=== PATIENT | male | born 1940 | race Caucasian/White ===

== ENCOUNTER 2017-05-05 17:40 | Inpatient (IN) | payer OTHER ==
[2017-05-05 17:47] VITALS: BMI 28.1
--- NOTE | 2017-05-05 17:48 | PDOC ---
Rapid Medical Evaluation Time Seen by Provider: 05/05/17 17:43 Medical Evaluation: Allergies Allergy/AdvReac Type Severity Reaction Status Date / Time No Known Drug Allergies Allergy Verified 05/05/17 17:43 05/05/17 17:44 I have performed a brief in-person evaluation of this patient. The patient presents with a chief complaint of: P/w worsening of LLE edema "for a long time" per pt. Sent in by PMD for evaluation. H/o HTN, HLD, CHF, edema on lasix, f/u [place] of cardiology. PMD is Dr Mark Pertinent physical exam findings: Stable and well betsy w/ edema b/l LE, L>R I have ordered the following:chem/cbc/bnp/ua The patient will proceed to the ED for further evaluation. 05/05/17 17:47 05/05/17 17:47
[2017-05-05 18:33] LABS: BASOPHIL 0.5 % (0-2.0); EOSINOPHIL 2.9 % (0-4.5); MCH 27.7 pg (25.7-33.7); MCHC 31.8 g/dl (32.0-35.9); MEAN CELL VOLUME 87.3 fl (80-96); MEAN PLT VOLUME 7.7 fl (7.5-11.1); NEUTROPHILS 54.2 % (42.8-82.8); PLATELET COUNT 229 K/MM3 (134-434); RDW 16.6 % (11.9-15.9); WHITE BLOOD COUNT 5.7 K/mm3 (4.0-10.0)
[2017-05-05 18:36] LABS: URINE APPEARANCE CLEAR; URINE BILIRUBIN NEGATIVE (NEGATIVE); URINE BLOOD NEGATIVE (NEGATIVE); URINE COLOR LTYELLOW; URINE GLUCOSE (UA) NEGATIVE (NEGATIVE); URINE KETONE NEGATIVE (NEGATIVE); URINE LEUK ESTERASE NEGATIVE (NEGATIVE); URINE NITRITE NEGATIVE (NEGATIVE); URINE PROTEIN NEGATIVE (NEGATIVE); URINE UROBILINOGEN NEGATIVE E.U./dl (0.2-1.0)
[2017-05-05 19:13] LABS: ALBUMIN 3.6 g/dl (3.4-5.0); ALK PHOS 117 U/L (45-117); ANION GAP 6 (8-16); BILIRUBIN,TOTAL 0.6 mg/dL (0.2-1.0); CALCIUM 8.8 mg/dL (8.5-10.1); CO2 32 mmol/L (21-32); GLUCOSE,RANDOM 90 mg/dL (74-106); SGOT/AST 17 U/L (15-37); SGPT/ALT 19 U/L (12-78); TOT PROT 7.3 g/dl (6.4-8.2)
--- NOTE | 2017-05-05 20:29 | PDOC ---
History of Present Illness - History of Present Illness Initial Comments: 05/05/17 20:43 Patient is a 76 year old male, accompanied by daughter, with significant medical hx of HTN and HLD who is presenting to the ED with worsening lower extremity edema for the past month. Patient reports he was seen by his title 1 tutor a month ago and was noted to have some lower extremity swelling. He was then seen again within the past week and was noted to have increased swelling to both legs. Daughter reports that the patient has had increased fatigue over the past several weeks. She notes that the patient falls asleep while doing every day activities such as while eating breakfast and gardening. The daughter also endorses that the patient has been slurring his words for the past week. Daughter spoke with the patient's cable installer repairer helper and PCP today who both referred him to the ED. Denies any chest pain, palpitations, shortness of breath, dyspnea with exertion , diaphoresis, lightheadedness, or history of blood clots. The patient takes 20mg of Lasix BID. PCP: Brian Mark MD Ore Dryer: Óscar Mackey [place] [place] Hx: hernia repair x 2 Allergies: NKDA <Kandace Buckner - Last Filed: 05/05/17 23:48> <Geraldine Torres - Last Filed: 05/06/17 17:21> - General Chief Complaint: Edema Stated Complaint: PALPITATIONS/SWOLLEN FEET Time Seen by Provider: 05/05/17 17:43 Past History <Kandace Buckner - Last Filed: 05/05/17 23:48> - Past Medical History Anemia: No Asthma: No Cancer: No Cardiac Disorders: No CVA: No COPD: No CHF: No Dementia: No Diabetes: No GI Disorders: No Disorders: No HTN: Yes Hypercholesterolemia: Yes Liver Disease: No Seizures: No Thyroid Disease: No - Surgical History Abdominal Surgery: Yes ("OPERATION FOR ULCER" 1970, HERNIA) Appendectomy: No Cardiac Surgery: No Cholecystectomy: No Lung Surgery: No Neurologic Surgery: No Orthopedic Surgery: Yes (LEFT ELBOW FX AND REPAIR) - Psycho/Social/Smoking Cessation Hx Anxiety: No Suicidal Ideation: No Smoking Status: No Smoking History: Former smoker Have you smoked in the past 12 months: No Number of Cigarettes Smoked Daily: 0 If you are a former smoker, when did you quit?: 35YRS AGO Information on smoking cessation initiated: No Hx Alcohol Use: No Drug/Substance Use Hx: No Substance Use Type: None Hx Substance Use Treatment: No <Geraldine Torres Carina - Last Filed: 05/06/17 17:21> - Past Medical History Allergies/Adverse Reactions: Allergies Allergy/AdvReac Type Severity Reaction Status Date / Time No Known Drug Allergies Allergy Verified 05/05/17 17:43 Home Medications: Ambulatory Orders Atorvastatin Calcium [Lipitor] 10 mg PO DAILY 05/05/13 Propranolol HCl [Propranolol HCl ER] 160 mg PO DAILY 05/05/13 Amitriptyline HCl [Elavil -] 75 mg PO DAILY 05/05/17 Divalproex Sodium [Depakote] 250 mg PO BID 05/05/17 Furosemide [Lasix -] 20 mg PO BID 05/05/17 Losartan Potassium [Cozaar -] 50 mg PO DAILY 05/05/17 Pramipexole Dihydrochloride [Mirapex -] 1.5 mg PO DAILY 05/05/17 Aspirin [ASA -] 81 mg PO DAILY 05/06/17 Review of Systems - Review of Systems Comments:: 05/05/17 20:43 CONSTITUTIONAL: Present: increased fatigue Absent: fever, chills, diaphoresis, loss of appetite HEENT: Absent: rhinorrhea, nasal congestion, throat pain, throat swelling, difficulty swallowing, mouth swelling, ear pain, eye pain, visual changes CARDIOVASCULAR: Present: peripheral edema Absent: chest pain, syncope, palpitations, irregular heart rate, lightheadedness RESPIRATORY: Absent: cough, shortness of breath, dyspnea with exertion, orthopnea, wheezing, stridor, hemoptysis GASTROINTESTINAL: Absent: abdominal pain, abdominal distension, nausea, vomiting, diarrhea, constipation, melena, hematochezia GENITOURINARY: Absent: dysuria, frequency, urgency, hesitancy, hematuria, flank pain, genital pain MUSCULOSKELETAL: Absent: myalgia, arthralgia, joint swelling SKIN: Absent: rash, itching, pallor HEMATOLOGIC/IMMUNOLOGIC: Absent: easy bleeding, easy bruising, lymphadenopathy, frequent infections ENDOCRINE: Absent: unexplained weight gain, unexplained weight loss, heat intolerance, cold intolerance NEUROLOGIC: Present: slurred speech Absent: headache, focal weakness or paresthesia, dizziness, unsteady gait, seizure, mental status changes, bladder or bowel incontinence. PSYCHIATRIC: Absent: anxiety, depression, suicidal or homicidal ideation, hallucinations <SitaKandace - Last Filed: 05/05/17 23:48> *Physical Exam - Vital Signs Last Vital Signs Temp Pulse Resp BP Pulse Ox 98.3 F 60 18 108/63 100 05/05/17 17:44 05/05/17 17:44 05/05/17 17:44 05/05/17 17:44 05/05/17 17:44 - Physical Exam Comments: 05/05/17 20:44 GENERAL: Well developed, well nourished. Awake and alert. No acute distress. HEENT: Normocephalic, atraumatic. PERRLA, EOMI. No conjunctival pallor. Sclera are non- icteric. Moist mucous membranes. Oropharynx is clear. NECK: Supple. Full ROM. No JVD. Carotid pulses 2+ and symmetric, without bruits. No thyromegaly. No lymphadenopathy. CARDIOVASCULAR: Regular rate and rhythm. No murmurs, rubs, or gallops. Distal pulses are 2+ and symmetric. PULMONARY: No evidence of respiratory distress. Lungs clear to auscultation bilaterally. No wheezing, rales or rhonchi. ABDOMINAL: Soft. Non-tender. Non-distended. No rebound or guarding. No organomegaly. Normoactive bowel sounds. MUSCULOSKELETAL: Normal range of motion at all joints. No bony deformities or tenderness. No CVA tenderness. EXTREMITIES: 2+ pitting edema lower extremities bilaterally. No cyanosis. No clubbing. No calf tenderness. SKIN: Warm and dry. Normal capillary refill. No rashes. No jaundice. NEUROLOGICAL: Alert, awake, appropriate. Cranial nerves 2-12 intact. Normal speech. Toes are down-going bilaterally. Gait is normal without ataxia. PSYCHIATRIC: Cooperative. Good eye contact. Appropriate mood and affect. <Kandace Buckner - Last Filed: 05/05/17 23:48> - Vital Signs Last Vital Signs Temp Pulse Resp BP Pulse Ox 98.3 F 60 18 108/63 100 05/05/17 17:44 05/05/17 17:44 05/05/17 17:44 05/05/17 17:44 05/05/17 17:44 <Geraldine Torres - Last Filed: 05/06/17 17:21> Heart Score/ECG Review #1 05/05/17 23:48 Poor data quality, interpretation may be adversely affected Sinus bradycardia at 56 bpm Otherwise normal ECG <Kandace Buckner - Last Filed: 05/05/17 23:48> ED Treatment Course - LABORATORY CBC & Chemistry Diagram: 05/05/17 18:00 05/05/17 18:00 - ADDITIONAL ORDERS Additional order review: Laboratory Results 05/05/17 05/05/17 05/05/17 18:00 18:00 18:00 Sodium 142 Potassium 4.5 Chloride 104 Carbon Dioxide 32 Anion Gap 6 L BUN 33 H D Creatinine 2.0 H D Creat Clearance w eGFR 32.65 Random Glucose 90 D Calcium 8.8 Total Bilirubin 0.6 AST 17 D ALT 19 Alkaline Phosphatase 117 B-Natriuretic Peptide 244.57 Total Protein 7.3 Albumin 3.6 Urine Color Ltyellow Urine Appearance Clear Urine pH 5.0 Urine Protein Negative Urine Glucose (UA) Negative Urine Ketones Negative Urine Blood Negative Urine Nitrite Negative Urine Bilirubin Negative Urine Urobilinogen Negative Ur Leukocyte Esterase Negative 05/05/17 18:00 RBC 4.15 MCV 87.3 MCHC 31.8 L RDW 16.6 H D MPV 7.7 Neutrophils % 54.2 Lymphocytes % 30.7 Monocytes % 11.7 H Eosinophils % 2.9 Basophils % 0.5 - RADIOLOGY Radiograph Interpretation: 05/05/17 21:41 Chest X-Ray Impression: Interval bilateral increased interstitial lung markings with mild atelectatic changes versus focal airspace disease in the right midlung. Rule out pneumonia. Correlation with PA and lateral view of the chest or a follow-up chest x-ray within a week is recommended to rule out underlying mass lesion. Reported By: Eloina Jane MD <Kandace Buckner - Last Filed: 05/05/17 23:48> - LABORATORY CBC & Chemistry Diagram: 05/06/17 05:35 05/06/17 05:35 - ADDITIONAL ORDERS Additional order review: Laboratory Results 05/05/17 05/05/17 05/05/17 18:00 18:00 18:00 Sodium 142 Potassium 4.5 Chloride 104 Carbon Dioxide 32 Anion Gap 6 L BUN 33 H D Creatinine 2.0 H D Creat Clearance w eGFR 32.65 Random Glucose 90 D Calcium 8.8 Total Bilirubin 0.6 AST 17 D ALT 19 Alkaline Phosphatase 117 B-Natriuretic Peptide 244.57 Total Protein 7.3 Albumin 3.6 Urine Color Ltyellow Urine Appearance Clear Urine pH 5.0 Urine Protein Negative Urine Glucose (UA) Negative Urine Ketones Negative Urine Blood Negative Urine Nitrite Negative Urine Bilirubin Negative Urine Urobilinogen Negative Ur Leukocyte Esterase Negative 05/05/17 18:00 RBC 4.15 MCV 87.3 MCHC 31.8 L RDW 16.6 H D MPV 7.7 Neutrophils % 54.2 Lymphocytes % 30.7 Monocytes % 11.7 H Eosinophils % 2.9 Basophils % 0.5 <Geraldine Torres - Last Filed: 05/06/17 17:21> Medical Decision Making - Medical Decision Making 05/05/17 20:26 76-year-old female brought in by his daughter for 6 weeks with increasing bilaterally extremity edema. His PCP is Dr. Mark and his cable installer repairer helper is Dr. Mackey He denies any shortness of breath, chest pain, nausea, vomiting, fever, chills , or cough The daughter states that he's unusually fatigued lately and for the past month always appears to be napping. He saw his title 1 tutor a month ago. She commented on the lower extremity edema and when he saw the the title 1 tutor on Friday. She said it had worsened. He does take Lasix 40 daily. He states this seems Dr. Mark once a year. Past medical history significant for hypercholesterolemia and hypertension. Past surgical history is repair bilaterally. He denies any drug allergies His is 100 percent on room air. duplex dopplers NEGATIVE for dvt 05/06/17 17:20 <Geraldine Torres - Last Filed: 05/06/17 17:21> *DC/Admit/Observation/Transfer - Attestations Scribe Attestion: 05/05/17 20:45 Documentation prepared by Kandace Buckner, acting as medical customer service representative for Geraldine Torres MD. <Kandace Buckner - Last Filed: 05/05/17 23:48> - Discharge Dispostion Admit: Yes <Geraldine Torres - Last Filed: 05/06/17 17:21> Diagnosis at time of Disposition: Malaise and fatigue, Edema extremities, Renal insufficiency - Referrals
[2017-05-05 22:12] LABS: INR 1.04 (0.82-1.09); PROTHROMBIN TIME (PATIENT) 11.5 SEC (9.98-11.88)
[2017-05-05 23:41] LABS: TROPONIN I < 0.02 ng/ml (0.00-0.05)
[2017-05-05] MEDS ORDERED: ASPIRIN 81 MG CHEWABLE TABLETS PO ONE (23:58)
[2017-05-06] MEDS ORDERED: ASPIRIN COATED 81 MG TABLET.EC ONE (00:07)
--- NOTE | 2017-05-06 00:07 | PN ---
Teaching Attending Note Name of Resident: Mayank Butterfield ATTENDING PHYSICIAN STATEMENT I saw and evaluated the patient. I reviewed the resident's note and discussed the case with the resident. I agree with the resident's findings and plan as documented. SUBJECTIVE: 76 yo M with pmhx of HTN and HLD, Hernia repair X2 who presents with bilateral LE edema X 1 month. Also, with associated fatigue/lethargy as per daughter. Daughter also noted slurred speech over the coarse of the past few days. ED Course: CT HEAD- Negative OBJECTIVE: Physical: VS: Vital Signs Period Temp Pulse Resp BP Sys/Balbuena Pulse Ox Last 24 Hr 98.3 F 60 18 108/63 100 GEN: NAD, Resting in bed, Speaking full sentences, AAoX3 HEENT: NCAT, R. pupil non reactive (glass eye), L. pupil reactive CARD: RRR S1, S2 RESP: CTAB ABD: BSx4m NTD to palpation EXT:+ 2 Pitting Edema Chest Xray- ? Pna CBCD WBC 5.7 K/mm3 (4.0-10.0) 05/05/17 18:00 RBC 4.15 M/mm3 (4.00-5.60) 05/05/17 18:00 Hgb 11.5 GM/dL (11.7-16.9) L D 05/05/17 18:00 Hct 36.2 % (35.4-49) 05/05/17 18:00 MCV 87.3 fl (80-96) 05/05/17 18:00 MCHC 31.8 g/dl (32.0-35.9) L 05/05/17 18:00 RDW 16.6 % (11.9-15.9) H D 05/05/17 18:00 Plt Count 229 K/MM3 (134-434) 05/05/17 18:00 MPV 7.7 fl (7.5-11.1) 05/05/17 18:00 CMP Sodium 142 mmol/L (136-145) 05/05/17 18:00 Potassium 4.5 mmol/L (3.5-5.1) 05/05/17 18:00 Chloride 104 mmol/L (98-107) 05/05/17 18:00 Carbon Dioxide 32 mmol/L (21-32) 05/05/17 18:00 Anion Gap 6 (8-16) L 05/05/17 18:00 BUN 33 mg/dL (7-18) H D 05/05/17 18:00 Creatinine 2.0 mg/dL (0.7-1.3) H D 05/05/17 18:00 Creat Clearance w eGFR 32.65 (>60) 05/05/17 18:00 Random Glucose 90 mg/dL (74-106) D 05/05/17 18:00 Calcium 8.8 mg/dL (8.5-10.1) 05/05/17 18:00 Total Bilirubin 0.6 mg/dL (0.2-1.0) 05/05/17 18:00 AST 17 U/L (15-37) D 05/05/17 18:00 ALT 19 U/L (12-78) 05/05/17 18:00 Alkaline Phosphatase 117 U/L (45-117) 05/05/17 18:00 Total Protein 7.3 g/dl (6.4-8.2) 05/05/17 18:00 Albumin 3.6 g/dl (3.4-5.0) 05/05/17 18:00 CARDIAC ENZYMES Creatine Kinase 120 IU/L (39-308) 05/05/17 21:50 Troponin I < 0.02 ng/ml (0.00-0.05) 05/05/17 21:50 EKG ASSESSMENT AND PLAN: 76 yo M with HTN, HLD who presents with Lethargy, slurred speech and bilateral LE Edema 1.) Aphasia - RO CVA/TIA - MRI Brain in am wo con - Consider Neuro consult - Echo/Carotids - ASA - Monitor on Tele 2.) Lethargy/Weakness DDx: Hypothyriodism/PNA/Speep Apnea - Pulm Consult - Chk. PA/LAt CXR - Check Stat TSH 3.) EDEN - Last Cr 1.0 in 2012 - U lytes - Avoid Nephrotoxins 4.) Bilateral LE Edema - Duplex Bilateral LE 5.) DVT Ppx - SCD Rest as Per Resident Note Place in Stroke Tele
[2017-05-06] MEDS: SODIUM CHLORIDE 1,000 ML IV SCH ×2 (03:27→22:00)
--- NOTE | 2017-05-06 03:50 | HP ---
CHIEF COMPLAINT: b/l LE swelling, transient slurring of speech PCP: Dr. Mark; Neurologist: Dr. Bryant HISTORY OF PRESENT ILLNESS: 76 y/o M w/PMH of HTN, HLD presents to ER due to b/l LE chronic swelling, transient slurred speech over last few months, and lethargy over the last few weeks according to daughter at bedside. Daughter called PCP and bicycle mechanic today who both told daugther to bring pt to ER. Pt has been taking lasix 20 mg bid for swelling with no relief of swelling. Slurred speech last for a few minutes and goes away randomly. Daughter also notes that pt has been very sleepy over the last few weeks and will fall asleep while eating breakfast, for example. Daughter also states pt's mental status at times declines temporarily. Pt denies any sick contacts, N/V/F/C, ALVA, light-headedness, dizziness, CP, SOB, adb pain, diarrhea, blood in stool, dysuria, focal neurological deficits or focal muscular or motor weakness. ER course was notable for: (1) Head CT, CXR, EKG (2) (3) Recent Travel: denies PAST MEDICAL HISTORY:HTN, HLD Social History: Smoking: quit 35 years ago Alcohol: infrequently Drugs: denies Family History: non-contributory Allergies No Known Drug Allergies Allergy (Verified 05/05/17 17:43) HOME MEDICATIONS: Home Medications Medication Instructions Recorded Atorvastatin Calcium [Lipitor] 10 mg PO DAILY 05/05/13 Propranolol HCl [Propranolol HCl 160 mg PO DAILY 05/05/13 ER] Amitriptyline HCl [Elavil -] 75 mg PO DAILY 05/05/17 Divalproex Sodium [Depakote] 250 mg PO BID 05/05/17 Furosemide [Lasix -] 20 mg PO BID 05/05/17 Losartan Potassium [Cozaar -] 50 mg PO DAILY 05/05/17 Pramipexole Dihydrochloride 1.5 mg PO DAILY 05/05/17 [Mirapex -] Aspirin [ASA -] 81 mg PO DAILY 05/06/17 REVIEW OF SYSTEMS CONSTITUTIONAL: +fatigue, lethargy Absent: fever, chills, diaphoresis, generalized weakness, malaise, loss of appetite, weight change HEENT: Absent: rhinorrhea, nasal congestion, throat pain, throat swelling, difficulty swallowing, mouth swelling, ear pain, eye pain, visual changes CARDIOVASCULAR: +peripheral lower extremity edema Absent: chest pain, syncope, palpitations, irregular heart rate, lightheadedness RESPIRATORY: Absent: cough, shortness of breath GASTROINTESTINAL: Absent: abdominal pain, nausea, vomiting, diarrhea, hematochezia GENITOURINARY: Absent: dysuria, frequency, hematuria NEUROLOGIC: +slurred speech Absent: headache, focal weakness or paresthesias, dizziness, unsteady gait, seizure, mental status changes, bladder or bowel incontinence Vital Signs Temperature 98.3 F 05/05/17 17:44 Pulse Rate 60 05/05/17 17:44 Respiratory Rate 18 05/05/17 17:44 Blood Pressure 108/63 05/05/17 17:44 O2 Sat by Pulse Oximetry (%) 100 05/05/17 17:44 PHYSICAL EXAMINATION GENERAL: Awake, alert, and fully oriented, in no acute distress. HEAD: Normal with no signs of trauma. EYES: +R prosthetic eye. L Pupil equal, round and reactive to light, L eye extraocular movements intact, sclera anicteric, conjunctiva clear. No lid lag. EARS, NOSE, THROAT: Ears normal, nares patent, oropharynx clear without exudates. Moist mucous membranes. No uvula or tongue deviation. NECK: Normal range of motion, supple LUNGS: Breath sounds equal, clear to auscultation bilaterally. No wheezes, and no crackles. No accessory muscle use. HEART: Regular rate and rhythm, normal S1 and S2 without murmur, rub or gallop. ABDOMEN: Soft, nontender, not distended, normoactive bowel sounds, no guarding, no rebound, no masses. No hepatomegaly or splenomegaly. MUSCULOSKELETAL: No bony deformities or tenderness. UPPER EXTREMITIES: 2+ pulses, warm, well-perfused. No cyanosis. No clubbing. No peripheral edema. LOWER EXTREMITIES: 2+ pitting edema up to knees. 2+ pulses, warm, well- perfused. No calf tenderness. NEUROLOGICAL: Cranial nerves II-XII grossly intact. Normal speech. Gait not observed. PSYCHIATRIC: Cooperative. Good eye contact. Appropriate mood and affect. SKIN: Warm, dry CBCD WBC 5.7 K/mm3 (4.0-10.0) 05/05/17 18:00 RBC 4.15 M/mm3 (4.00-5.60) 05/05/17 18:00 Hgb 11.5 GM/dL (11.7-16.9) L D 05/05/17 18:00 Hct 36.2 % (35.4-49) 05/05/17 18:00 MCV 87.3 fl (80-96) 05/05/17 18:00 MCHC 31.8 g/dl (32.0-35.9) L 05/05/17 18:00 RDW 16.6 % (11.9-15.9) H D 05/05/17 18:00 Plt Count 229 K/MM3 (134-434) 05/05/17 18:00 MPV 7.7 fl (7.5-11.1) 05/05/17 18:00 CMP Sodium 142 mmol/L (136-145) 05/05/17 18:00 Potassium 4.5 mmol/L (3.5-5.1) 05/05/17 18:00 Chloride 104 mmol/L (98-107) 05/05/17 18:00 Carbon Dioxide 32 mmol/L (21-32) 05/05/17 18:00 Anion Gap 6 (8-16) L 05/05/17 18:00 BUN 33 mg/dL (7-18) H D 05/05/17 18:00 Creatinine 2.0 mg/dL (0.7-1.3) H D 05/05/17 18:00 Creat Clearance w eGFR 32.65 (>60) 05/05/17 18:00 Random Glucose 90 mg/dL (74-106) D 05/05/17 18:00 Calcium 8.8 mg/dL (8.5-10.1) 05/05/17 18:00 Total Bilirubin 0.6 mg/dL (0.2-1.0) 05/05/17 18:00 AST 17 U/L (15-37) D 05/05/17 18:00 ALT 19 U/L (12-78) 05/05/17 18:00 Alkaline Phosphatase 117 U/L (45-117) 05/05/17 18:00 Total Protein 7.3 g/dl (6.4-8.2) 05/05/17 18:00 Albumin 3.6 g/dl (3.4-5.0) 05/05/17 18:00 CARDIAC ENZYMES Creatine Kinase 120 IU/L (39-308) 05/05/17 21:50 Troponin I < 0.02 ng/ml (0.00-0.05) 05/05/17 21:50 Imaging: Chest X-Ray Impression: Interval bilateral increased interstitial lung markings with mild atelectatic changes versus focal airspace disease in the right midlung. Rule out pneumonia. Correlation with PA and lateral view of the chest or a follow-up chest x-ray within a week is recommended to rule out underlying mass lesion. Reported By: Eloina Jane MD Head CT Moderate volume loss and mild chronic microvascular ischemic changes. No gross acute intracranial pathology is identified. Correlate clinically to determine further evaluation and follow-up. Active Medications Amitriptyline HCl (Elavil -) 75 mg PO DAILY [facility] Aspirin (Ecotrin -) 81 mg PO DAILY [facility] Atorvastatin Calcium (Lipitor -) 10 mg PO DAILY [facility] Divalproex Sodium (Depakote -) 250 mg PO BID [facility] Sodium Chloride (Normal Saline -) 1,000 mls @ 75 mls/hr IV ASDIR [facility] Last Admin: 05/06/17 03:27 Dose: 75 mls/hr Non-Formulary Medication (Propranolol Hcl [Propranolol Hcl Er]) 160 mg PO DAILY [facility] Pramipexole Dihydrochloride (Mirapex -) 1.5 mg PO DAILY [facility] ASSESSMENT/PLAN: 76 y/o M w/PMH of HTN, HLD presents to ER due to b/l LE chronic swelling, transient slurred speech over last few months, and lethargy over the last few weeks. Admitted for EDEN on possible CKD and to r/o TIA/CVA -Transient Aphasia secondary to TIA/CVA -Head CT neg -MRI brain in AM ordered -Echo ordered -Carotid U/S ordered -ASA 81 po qd -Neuro consulted -Speech/Swallow eval not needed as pt has no signs of dysphagia at this time. -Lethargy -may be secondary to ELIJAH, PNA -TSH ordered -f/u official read on CXR PA/Lat -pt does not complain about this although daughter does -EDEN on possible CKD -last Cr on file is 1 in 2012 -currently at 2.0; monitor -gentle fluid hydration w/NS @ 75 ml/hr -monitor for signs of fluid overload -home lasix held. home cozaar held. -Avoid nephrotoxins -B/L LE edema -likely due to chronic venous insufficiency -Duplex b/l LE U/S ordered -HTN -will hold cozaar -c/w propanolol 160 mg po qd -monitor for bradycardia -HLD -c/w lipitor 10 mg po qhs -Migraine ALVA -c/w depakote 250 mg po bid, amitriptyline 75 mg po qd -f/u depakote levels -DVT ppx -SCDs -ambulate -FEN -NS @ 75 ml/hr -monitor electrolytes -cardiac diet -Dispo: -Monitor on tele Visit type - Emergency Visit Emergency Visit: Yes ED Registration Date: 05/05/17 Care time: The patient presented to the Emergency Department on the above date and was hospitalized for further evaluation of their emergent condition. - New Patient This patient is new to me today: Yes Date on this admission: 05/06/17 - Critical Care Critical Care patient: No
[2017-05-06 06:42] LABS: BASOPHIL 0.7 % (0-2.0); EOSINOPHIL 3.7 % (0-4.5); MCH 28.3 pg (25.7-33.7); MCHC 32.8 g/dl (32.0-35.9); MEAN CELL VOLUME 86.5 fl (80-96); MEAN PLT VOLUME 7.8 fl (7.5-11.1); PLATELET COUNT 239 K/MM3 (134-434); RDW 16.3 % (11.9-15.9); WHITE BLOOD COUNT 5.7 K/mm3 (4.0-10.0)
[2017-05-06 07:09] LABS: ALBUMIN 3.4 g/dl (3.4-5.0); CREATININE 1.7 mg/dL (0.7-1.3); GLUCOSE,RANDOM 84 mg/dL (74-106); MAGNESIUM 2.4 mg/dL (1.8-2.4); SGOT/AST 16 U/L (15-37); SGPT/ALT 17 U/L (12-78)
[2017-05-06 07:16] LABS: ALK PHOS 114 U/L (45-117); ANION GAP 7 (8-16); BILIRUBIN,TOTAL 0.6 mg/dL (0.2-1.0); CALCIUM 8.8 mg/dL (8.5-10.1); CHOLESTEROL 158 mg/dL (50-200); CO2 30 mmol/L (21-32); LDL CHOLESTEROL (ONLY SJRH) 86 mg/dL (5-100); TOT PROT 6.9 g/dl (6.4-8.2)
[2017-05-06] MEDS: DIVALPROEX SODIUM 250 MG TABLET E.C. (FP) PO SCH ×2 (09:54→22:20)
[2017-05-06] MEDS: ASPIRIN COATED 81 MG TABLET.EC PO SCH (09:54)
[2017-05-06] MEDS: ATORVASTATIN CA 10 MG TABLET (FP) PO SCH (09:55)
[2017-05-06] MEDS ORDERED: AMITRIPTYLINE HCL 75 MG TABLET PO SCH (10:00)
[2017-05-06] MEDS ORDERED: PRAMIPEXOLE DIHYDROCHLORIDE 1.5 MG TABLET PO SCH (10:00)
--- NOTE | 2017-05-06 12:49 | PN ---
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 Patient is [place] Cardiology [place] [facility] [place]. On multiple med including valproic acid, Propranolol, pramipexole, Atorvastatin, Amitriptyline and ASA. He is an ex-smoker over 30 years ago and still likes to work in his garden. He doesn't know if he snores and denies alcohol abuse. 2yrs ago a CAT scan of the abdomen revealed cholelithiasis. His daughter confirms intermittent slurred speech. Preliminary CAT Scan of head shows no acute finding; MRI was ordered.CXR : Interstitial changes. Lab: Elevated renal lab but other morena stable. On Exam: Vital Signs Temp 97.4 F L 05/06/17 08:48 Pulse 54 L 05/06/17 08:48 Resp 18 05/06/17 08:48 BP 135/85 05/06/17 08:48 Pulse Ox 96 05/06/17 08:48 Intake & Output 05/05/17 05/06/17 05/06/17 23:59 11:59 23:59 Weight 225 lb Other: Height 6 ft 3 in Body Mass Index (BMI) 28.1 Weight Measurement Method Est/Stated by Patient Alert speaking normally neck: supple Chest: Decreased breath sounds Cor:Reg Abdomen: Distended but non tender Ext: 2-3+ edema to knees Abnormal Lab Results 05/05/17 05/05/17 05/06/17 18:00 18:00 05:35 Hgb 11.5 L D MCHC 31.8 L RDW 16.6 H D 16.3 H Monocytes % 11.7 H Anion Gap 6 L BUN 33 H D Creatinine 2.0 H D Hemoglobin A1c % Triglycerides Valproic Acid 05/06/17 05/06/17 05/06/17 05:35 05:35 05:35 Hgb MCHC RDW Monocytes % Anion Gap 7 L BUN 31 H Creatinine 1.7 H Hemoglobin A1c % 6.1 H Triglycerides 208 H Valproic Acid 26.175 L IMP: Lethargy R/O Obstructive sleep Apnea R/O TIA R/O side effects of meds Pedal Edema ? cause; No DVT ;BNP OK and TSH OK and Urine Protein Negative Hypertension: Stable readings on Losartan and Propranolol at home Hyperlipidemia On Rx. Cholelithiasis Chronic renal failure ? Restless leg syndrome Mild Anemia: To order Fe, Bi2 and Folate levels Plan: Pulmonary, Neurology and Cardiac consults ? ABG F/U Lab Await MRI head and Echocardiogram amd Carotid reports. PT
--- NOTE | 2017-05-06 14:40 | EKG ---
Test Reason : Blood Pressure : / mmHG Vent. Rate : 056 BPM Atrial Rate : 056 BPM P-R Int : 178 ms QRS Dur : 102 ms QT Int : 458 ms P-R-T Axes : 025 027 038 degrees QTc Int : 441 ms SINUS BRADYCARDIA OTHERWISE NORMAL ECG WHEN COMPARED WITH ECG OF 26-MAY-2013 13:44, NO SIGNIFICANT CHANGE WAS FOUND Confirmed by JOSUE CERVANTES MD ([id number]) on 05/06/2017 2:39:41 PM Referred By: Confirmed By:JOSUE CEVRANTES MD
--- NOTE | 2017-05-06 16:11 | CON.CARD ---
Consult Consult Specialty:: cardio Referred by:: riley Reason for Consultation:: edema - History of Present Illness Chief Complaint: change in MS History of Present Illness: 76 yo male with several weeks of lethargy; increased pedal edema. taking lasix 20 bid as outpt for leg swelling, but no improvement. family notes pt sleeping even while at the dinner table and generalized fatigue. also intermittent slurred speech. pt states legs swollen for about 1 yr (accurate?)--worse of late. denies any sob, orthopnea. denies cp or palpitations no recent local PMD f/u. outside cardio ([facility] [place]) PMH: HTN? HPL migraines RLS - Alcohol/Substance Use Hx Alcohol Use: No - Smoking History Smoking history: Former smoker Have you smoked in the past 12 months: No Aproximately how many cigarettes per day: 0 If you are a former smoker, when did you quit?: 35YRS AGO Home Medications - Allergies Allergies/Adverse Reactions: Allergies Allergy/AdvReac Type Severity Reaction Status Date / Time No Known Drug Allergies Allergy Verified 05/05/17 17:43 - Home Medications Home Medications: Ambulatory Orders Atorvastatin Calcium [Lipitor] 10 mg PO DAILY 05/05/13 Propranolol HCl [Propranolol HCl ER] 160 mg PO DAILY 05/05/13 Amitriptyline HCl [Elavil -] 75 mg PO DAILY 05/05/17 Divalproex Sodium [Depakote] 250 mg PO BID 05/05/17 Furosemide [Lasix -] 20 mg PO BID 05/05/17 Losartan Potassium [Cozaar -] 50 mg PO DAILY 05/05/17 Pramipexole Dihydrochloride [Mirapex -] 1.5 mg PO DAILY 05/05/17 Aspirin [ASA -] 81 mg PO DAILY 05/06/17 Family Disease History - Family Disease History Family History: Denies (no cmp) Review of Systems - Review of Systems Constitutional: reports: Lethargy. denies: Chills, Fever Eyes: denies: Eye Pain HENT: denies: Nasal Congestion Neck: denies: Stiffness Cardiovascular: denies: Palpitations Respiratory: denies: Orthopnea, PND Gastrointestinal: denies: Diarrhea, Rectal Bleeding Genitourinary: denies: Burning, Hematuria Musculoskeletal: denies: Muscle Pain Integumentary: denies: Rash Neurological: denies: Numbness, Seizure, Syncope Endocrine: denies: Excessive Sweating Hematology/Lymphatic: denies: Excessive Bleeding Vital Signs: Vital Signs Temperature 98.2 F 05/06/17 15:43 Pulse Rate 57 L 05/06/17 15:43 Respiratory Rate 18 05/06/17 15:43 Blood Pressure 143/86 05/06/17 15:43 O2 Sat by Pulse Oximetry (%) 96 05/06/17 15:43 Constitutional: Yes: Well Nourished, No Distress Eyes: No: Sclera Icterus HENT: No: Nasal Congestion Neck: No: Decreased ROM Respiratory: Yes: CTA Bilaterally. No: Accessory Muscle Use, Rales, Wheezes Gastrointestinal: Yes: Normal Bowel Sounds. No: Distention, Hepatomegaly, Palpable Mass, Tenderness Cardiovascular: Yes: Regular Rate and Rhythm JVD: No Carotid Bruit: No PMI: Non-Displaced Heart Sounds: Yes: S1, S2. No: Gallop Murmur: No: Systolic Murmur, Diastolic Murmur Musculoskeletal: Yes: Other (No kyphosis) Extremities: No: Cold, Cyanosis Edema: Yes (1+ ankles (SCDs)) Peripheral Pulses: 2+ Left Carotid, 2+ Right Carotid, 2+ Left Doralis Pedis, 2+ Right Dorsalis Pedis Integumentary: No: Jaundice Neurological: Yes: Alert. No: Seizure Psychiatric: No: Agitated - Other Data Labs, Other Data: CBC, BMP 05/06/17 05:35 05/06/17 05:35 INR, PTT INR 1.04 (0.82-1.09) 05/05/17 21:50 Laboratory Tests 05/05/17 05/05/17 05/05/17 18:00 18:00 21:50 WBC Hgb Plt Count Sodium Potassium Carbon Dioxide BUN Creatinine Hemoglobin A1c % AST ALT Creatine Kinase 120 Troponin I < 0.02 B-Natriuretic Peptide 244.57 Triglycerides Cholesterol Total LDL Cholesterol HDL Cholesterol TSH 2.39 05/06/17 05/06/17 05/06/17 05:35 05:35 05:35 WBC 5.7 Hgb 12.0 Plt Count 239 Sodium 142 Potassium 4.5 Carbon Dioxide 30 BUN 31 H Creatinine 1.7 H Hemoglobin A1c % 6.1 H AST 16 ALT 17 Creatine Kinase Troponin I B-Natriuretic Peptide Triglycerides 208 H Cholesterol 158 Total LDL Cholesterol 86 HDL Cholesterol 59 TSH tele: sinus rene 40s-60 Imaging - Results Chest X-ray: Report Reviewed (clear lungs/pleura; diffuse incr markings unchanged vs prior c/w chronic changes) Cat Scan: Report Reviewed (head: no acute path) Assessment/Plan Echo 05/03 (here): nl LV/EF; no RWMA; nl RV; nl LA; mild AI/MR/TR; RVSP 30-40 Carotids: minimal, nonobstr ather ECG: NSR (50s), no path q's, no isch findings altered MS, slurred speech: -CT head no acute pathology -per neuro (consulted) LE edema: -no pulm congestion on CXR, BNP 200 -no chf on exam (no JVD) -TSH normal -? med s.e. (pramipexole (which can also cause sleepiness/MS change)?)--neuro med doses per dr ortega chappell -lasix on hold for EDEN, getting IVF (creat improving) -edema mild--defer stockings for now sinus bradycardia: -suspect due to hi vagal tone from lethargic pt -propranolol may be contributing (hi dose) -pt's current sx's are not related to bradycardia, which is only mild (HR mostly in 50s, occasionally high 40s) -cont telemetry--may need to decr propranolol dose if excessive rene, when pt awake/alert/active EDEN: -baseline creat unknown -initially creat 2.0 here, improving today -per renal HTN: -well controlled BP's here -on propranolol--? only for migraines, or also h/o HTN? HPL: -cont home statin regimen (or formulary equivalent) -numbers good here
--- NOTE | 2017-05-06 16:26 | CON.PULM ---
Consult Consult Specialty:: PULM/CCM Referred by:: MIAKELA Reason for Consultation:: AMS / (?) OSAS - History of Present Illness Chief Complaint: AMS History of Present Illness: 76 M, ex smoker about 30 years ago. No clear history of obstructive airways disease. Listed past medical history. Possible history consistent with Obstructive Sleep Apnea Syndrome. Recently his daughter has been reporting that he has been excessively tired and even falling asleep at the dinner table. About a 1 month history of bipedal edema for which he was placed on diuretics. Patient was advised to double his diuretics by his caul dresser. Admitted via the ER due to intermittent slurred speech and AMS. The patient is currently fully awake and alert and oriented. He is able to provide a full history. Noted that his labs reveal a low AG. CXR: Normal. He is known to be on valproic acid, pramipexole, and Amitriptyline. No fever or chills. No CP or SOB. - History Source History Provided By: Patient Limitations to Obtaining History: No Limitations - Alcohol/Substance Use Hx Alcohol Use: No - Smoking History Smoking history: Former smoker Have you smoked in the past 12 months: No Aproximately how many cigarettes per day: 0 If you are a former smoker, when did you quit?: 35YRS AGO Home Medications - Allergies Allergies/Adverse Reactions: Allergies Allergy/AdvReac Type Severity Reaction Status Date / Time No Known Drug Allergies Allergy Verified 05/05/17 17:43 - Home Medications Home Medications: Ambulatory Orders Atorvastatin Calcium [Lipitor] 10 mg PO DAILY 05/05/13 Propranolol HCl [Propranolol HCl ER] 160 mg PO DAILY 05/05/13 Amitriptyline HCl [Elavil -] 75 mg PO DAILY 05/05/17 Divalproex Sodium [Depakote] 250 mg PO BID 05/05/17 Furosemide [Lasix -] 20 mg PO BID 05/05/17 Losartan Potassium [Cozaar -] 50 mg PO DAILY 05/05/17 Pramipexole Dihydrochloride [Mirapex -] 1.5 mg PO DAILY 05/05/17 Aspirin [ASA -] 81 mg PO DAILY 05/06/17 Review of Systems - Review of Systems Constitutional: reports: Malaise. denies: Chills, Fever, Lethargy, Night Sweats , Unintentional Wgt. Loss Eyes: reports: No Symptoms HENT: reports: No Symptoms Neck: reports: No Symptoms Cardiovascular: reports: No Symptoms Respiratory: reports: No Symptoms Gastrointestinal: reports: No Symptoms Genitourinary: reports: No Symptoms Breasts: reports: No Symptoms Reported Musculoskeletal: reports: No Symptoms Integumentary: reports: No Symptoms Neurological: reports: Change in Speech, Confusion, Other (These are reported by the family) Endocrine: reports: No Symptoms Hematology/Lymphatic: reports: No Symptoms Physical Exam Vital Sings: Vital Signs Temperature 98.2 F 05/06/17 15:43 Pulse Rate 57 L 05/06/17 15:43 Respiratory Rate 18 05/06/17 15:43 Blood Pressure 143/86 05/06/17 15:43 O2 Sat by Pulse Oximetry (%) 96 05/06/17 15:43 Constitutional: Yes: Well Nourished, No Distress, Calm Eyes: Yes: Conjunctiva Clear, EOM Intact HENT: Yes: Atraumatic, Normocephalic Neck: Yes: Supple, Trachea Midline Cardiovascular: Yes: Regular Rate and Rhythm Respiratory: Yes: Regular, CTA Bilaterally ...Inspection: Yes: WNL ...Clubbing: No Gastrointestinal: Yes: WNL, Normal Bowel Sounds, Soft Renal/: Yes: WNL Breast(s): Yes: WNL Musculoskeletal: Yes: WNL Extremities: Yes: WNL Edema: Yes Peripheral Pulses WNL: Yes Integumentary: Yes: WNL Neurological: Yes: WNL, Alert, Oriented ...Motor Strength: WNL Psychiatric: Yes: WNL, Alert, Oriented Labs: CBC, BMP 05/06/17 05:35 05/06/17 05:35 Imaging - Results Chest X-ray: Report Reviewed, Image Reviewed Problem List - Problems (1) Edema extremities Code(s): R60.0 - LOCALIZED EDEMA (2) Malaise and fatigue Code(s): R53.81 - OTHER MALAISE R53.83 - OTHER FATIGUE (3) Renal insufficiency Code(s): N28.9 - DISORDER OF KIDNEY AND URETER, UNSPECIFIED (4) Sleep apnea Code(s): G47.30 - SLEEP APNEA, UNSPECIFIED Assessment/Plan PLAN: The patient does have a clinical history that may indicate Excessive Daytime Sleepiness and Sleep Apnea -> needs formal testing after D/C. I do not feel he has significant hypercapnia that would be causing the symptoms that brought him to the hospital. Currently he is fully awake and alert and comfortable on RA. I will defer ABG at this time. His AMS may be due to decreased clearance of several sedating medications that he takes. (Renal insufficiency may be due to increased diuretic use) Noted that the patient had a low AG. Can be seen in paraproteinemias, Multiple Myeloma, etc. Further workup recommended. Will follow. Thank you. Dr Parikh
--- NOTE | 2017-05-06 17:20 | CONSULT ---
Consult - text type - Consultation Consultation Note: NEUROLOGY CONSULTATION is greatly appreciated: This 76 yo RH s man with h/o HTN and Chol is well-known to me over many years for treatment of refractory migraine headaches and Restless Limbs Syndrome (RLS) with insomnia. Both have been well controlled in recent years with only 1-2 Headaches per month and generally good sleep. On: Propranolol ER 160 mg qd; depakote ER 250 mg q 12 hrs; Amitriptyline 75 mg q HS; and pramipexole .125 mg after breakfast and .75 q HS. Pt has had episodic pretibial edema over the last few years which usually responds to HCTZ and elevation. When last seen (03/31/17) there was no edema but the patient c/o daytime somnolence and pramipexole was decreased. However, Pt apparently has continued with a prior Rx of Pramipexole 1.5 mg QHS. Now admitted with recurrent edema and persistent daytime somnolence. However Pt is active, has been gardening and is independent in all ADL's. KENZIE: No bruits. Cor reg. 2+ pretibial edema. - Jesus's. NEURO: Awake, alert, Ox 3. MS/Speech: Normal CN II-XII: Normal aside from enucleation OD Motor: No drift or tremor. Normal strength, tone, bulk and reflexes. Toes downgoing. Coord: No FTN dystaxia Sensory: Normal Gait: Normal IMP: Normal neurological exam Migraine Headaches Restless Limbs Syndrome (RLS). Adverse drug affects. SUGGEST: Reduce Propranolol to 120 mg q AM Reduce amittriptyline to 50 mg q HS Reduce pramipexole to .125 mg after breakfast and .5 mg qHS Cont Depakote ER 250 mg PO BID. Can increase depakote if necessary if migraines recur. Thank you very much, Husam Bryant MD
[2017-05-06] MEDS ORDERED: PT OWN MED DRAWER 7, Y5N ONE ×2 (18:52→22:14)
[2017-05-06] MEDS: AMITRIPTYLINE HCL 25 MG TABLET (FP) PO SCH (22:20)
[2017-05-06] MEDS: PRAMIPEXOLE DIHYDROCHLORIDE 0.5 MG TABLET PO SCH (22:20)
[2017-05-07] MEDS ORDERED: PRAMIPEXOLE DIHYDROCHLORIDE 0.25 MG TABLET PO SCH
[2017-05-07 07:44] LABS: MAGNESIUM 2.1 mg/dL (1.8-2.4)
[2017-05-07 07:48] LABS: FERRITIN 15.042 ng/ml (16.4-293.9)
[2017-05-07] MEDS ORDERED: PT OWN MED DRAWER 7, Y5N ONE (08:12)
--- NOTE | 2017-05-07 08:36 | PN ---
Progress Note, Physician Chief Complaint: I feel better; less tired. History of Present Illness: Patient admitted with lethargy and increased pedal edema thought to be due to possible CVA. Patient seen by multiple consultants and appreciate input. Dr. Bryant saw the patient and decreased all of his meds for Migraine and restless leg syndrome. Mild anemia and so far ferritin is reported as low.Will add myeloma tests as suggested by Umberto FRANKLIN and followup with outpatient sleep apnea testing. Pt. To have PT today. MRI : no acute infarction. IV for elevated renal lab; will continue for 24hrs. - Current Medication List Current Medications: Active Medications Amitriptyline HCl (Elavil -) 50 mg PO HS [facility] Last Admin: 05/06/17 22:20 Dose: 50 mg Aspirin (Ecotrin -) 81 mg PO DAILY [facility] Last Admin: 05/06/17 09:54 Dose: 81 mg Atorvastatin Calcium (Lipitor -) 10 mg PO DAILY [facility] Last Admin: 05/06/17 09:55 Dose: 10 mg Divalproex Sodium (Depakote -) 250 mg PO BID [facility] Last Admin: 05/06/17 22:20 Dose: 250 mg Sodium Chloride (Normal Saline -) 1,000 mls @ 75 mls/hr IV ASDIR [facility] Last Admin: 05/06/17 22:00 Dose: 75 mls/hr Pramipexole Dihydrochloride (Mirapex -) 0.125 mg PO DAILY@0830 [facility] Pramipexole Dihydrochloride (Mirapex -) 0.5 mg PO HS [facility] Last Admin: 05/06/17 22:20 Dose: 0.5 mg Propranolol HCl (Inderal La -) 120 mg PO DAILY [facility] - Objective Vital Signs: Vital Signs Temperature 97.7 F 05/07/17 05:41 Pulse Rate 59 L 05/07/17 05:41 Respiratory Rate 18 05/07/17 05:41 Blood Pressure 131/78 05/07/17 05:41 O2 Sat by Pulse Oximetry (%) 100 05/06/17 21:00 Constitutional: Yes: Calm Eyes: Yes: Conjunctiva Clear Cardiovascular: Yes: Regular Rate and Rhythm Respiratory: Yes: Regular. No: Rales, Wheezes Gastrointestinal: Yes: Soft Genitourinary: No: Olivarez Present Edema: LLE: 1+, RLE: 1+ Neurological: Yes: Alert, Oriented Labs: CBC, BMP 05/06/17 05:35 05/06/17 05:35 INR, PTT INR 1.04 (0.82-1.09) 05/05/17 21:50 - ....Imaging MRI: Report Reviewed Problem List - Problems (1) Malaise and fatigue Assessment/Plan: May be due to med effect with renal failure. Code(s): R53.81 - OTHER MALAISE R53.83 - OTHER FATIGUE (2) Renal insufficiency Assessment/Plan: OFF lasix now. Will follow Code(s): N28.9 - DISORDER OF KIDNEY AND URETER, UNSPECIFIED (3) Sleep apnea Assessment/Plan: Will arrange outpatient study. Code(s): G47.30 - SLEEP APNEA, UNSPECIFIED (4) Migraine Assessment/Plan: Re-evaluated by Dr. Bryant. Code(s): G43.909 - MIGRAINE, UNSP, NOT INTRACTABLE, WITHOUT STATUS MIGRAINOSUS (5) Restless leg syndrome Assessment/Plan: Med changes made by neuro MD Code(s): G25.81 - RESTLESS LEGS SYNDROME (6) Iron deficiency anemia Assessment/Plan: Ferritin low. Will add stool guiac and myeloma tests. Code(s): D50.9 - IRON DEFICIENCY ANEMIA, UNSPECIFIED
[2017-05-07] MEDS: ATORVASTATIN CA 10 MG TABLET (FP) PO SCH (09:34)
[2017-05-07] MEDS: PRAMIPEXOLE DIHYDROCHLORIDE 0.125 MG TABLET PO SCH (09:34)
[2017-05-07] MEDS: DIVALPROEX SODIUM 250 MG TABLET E.C. (FP) PO SCH ×2 (09:35→21:12)
[2017-05-07] MEDS: ASPIRIN COATED 81 MG TABLET.EC PO SCH (09:35)
--- NOTE | 2017-05-07 10:43 | PN ---
Progress Note (short form) - Note Progress Note: s: no cp sob palps dizzy o: Vital Signs Period Temp Pulse Resp BP Sys/Balbuena Pulse Ox Last 24 Hr 97.3 F-98.2 F 50-59 18-18 131-150/77-86 96-100 Constitutional: Yes: Well Nourished, No Distress Eyes: No: Sclera Icterus Respiratory: Yes: CTA Bilaterally. No: Accessory Muscle Use, Rales, Wheezes Gastrointestinal: Yes: Normal Bowel Sounds. No: Distention, Hepatomegaly, Palpable Mass, Tenderness Cardiovascular: Yes: Regular Rate and Rhythm JVD: No Heart Sounds: Yes: S1, S2. No: Gallop Murmur: No: Systolic Murmur, Diastolic Murmur Extremities: No: Cold, Cyanosis Edema: Yes (trace bl ankles) Integumentary: No: Jaundice diaphoresis Neurological: Yes: Alert. No: Seizure Psychiatric: No: Agitated Current Medications Generic Name Dose Route Start Last Admin Trade Name Freq PRN Reason Stop Dose Admin Amitriptyline HCl 50 mg 05/06/17 22:00 05/06/17 22:20 Elavil - PO 50 mg HS [facility] Administration Aspirin 81 mg 05/06/17 10:00 05/07/17 09:35 Ecotrin - PO 81 mg DAILY [facility] Administration Atorvastatin Calcium 10 mg 05/06/17 10:00 05/07/17 09:34 Lipitor - PO 10 mg DAILY [facility] Administration Divalproex Sodium 250 mg 05/06/17 10:00 05/07/17 09:35 Depakote - PO 250 mg BID [facility] Administration Sodium Chloride 1,000 mls @ 75 mls/hr 05/06/17 02:15 05/06/17 22:00 Normal Saline - IV 75 mls/hr ASDIR [facility] Administration Pramipexole Dihydrochloride 0.125 mg 05/07/17 08:30 05/07/17 09:34 Mirapex - PO 0.125 mg DAILY@0830 [facility] Administration Pramipexole Dihydrochloride 0.5 mg 05/06/17 22:00 05/06/17 22:20 Mirapex - PO 0.5 mg HS [facility] Administration Propranolol HCl 120 mg 05/07/17 10:00 05/07/17 09:35 Inderal La - PO 120 mg DAILY [facility] Administration CBC, BMP 05/06/17 05:35 05/06/17 05:35 tele: sr Echo 05/03 (here): nl LV/EF; no RWMA; nl RV; nl LA; mild AI/MR/TR; RVSP 30-40 Carotids: minimal, nonobstr ather ECG: NSR (50s), no path q's, no isch findings a/p: altered MS, slurred speech: -CT head no acute pathology -plans per neuro (consulted) LE edema: -no pulm congestion on CXR, BNP 200 -no chf on exam (no JVD) -TSH normal -? med s.e. (pramipexole (which can also cause sleepiness/MS change)?)--neuro med doses per dr ortega chappell -lasix on hold for EDEN, getting IVF (creat improving) -edema mild--defer stockings for now sinus bradycardia: -suspect due to hi vagal tone from lethargic pt -propranolol may be contributing -pt's current sx's are not related to bradycardia, which is only mild (HR mostly in 50s, occasionally high 40s) -tele now showing sr 60s, no significant bradycardia EDEN: -initially creat 2.0 here, improving -per renal HTN: -well controlled BP's here -on propranolol--? only for migraines, or also h/o HTN? HPL: -cont home statin regimen
[2017-05-07] MEDS: SODIUM CHLORIDE 1,000 ML IV SCH (11:18)
--- NOTE | 2017-05-07 12:43 | PN ---
Progress Note, Physician History of Present Illness: pulmonary awake,alert,nad,-sob,-cp. - Current Medication List Current Medications: Active Medications Amitriptyline HCl (Elavil -) 50 mg PO [facility] Last Admin: 05/06/17 22:20 Dose: 50 mg Aspirin (Ecotrin -) 81 mg PO DAILY [facility] Last Admin: 05/07/17 09:35 Dose: 81 mg Atorvastatin Calcium (Lipitor -) 10 mg PO DAILY [facility] Last Admin: 05/07/17 09:34 Dose: 10 mg Divalproex Sodium (Depakote -) 250 mg PO BID [facility] Last Admin: 05/07/17 09:35 Dose: 250 mg Sodium Chloride (Normal Saline -) 1,000 mls @ 75 mls/hr IV ASDIR [facility] Last Admin: 05/07/17 11:18 Dose: 75 mls/hr Pramipexole Dihydrochloride (Mirapex -) 0.125 mg PO DAILY@0830 [facility] Last Admin: 05/07/17 09:34 Dose: 0.125 mg Pramipexole Dihydrochloride (Mirapex -) 0.5 mg PO [facility] Last Admin: 05/06/17 22:20 Dose: 0.5 mg Propranolol HCl (Inderal La -) 120 mg PO DAILY [facility] Last Admin: 05/07/17 09:35 Dose: 120 mg - Objective Vital Signs: Vital Signs Temperature 97.7 F 05/07/17 05:41 Pulse Rate 59 L 05/07/17 05:41 Respiratory Rate 18 05/07/17 09:00 Blood Pressure 131/78 05/07/17 05:41 O2 Sat by Pulse Oximetry (%) 98 05/07/17 09:00 Constitutional: Yes: Well Nourished, Calm Eyes: Yes: WNL HENT: Yes: WNL Neck: Yes: WNL Cardiovascular: Yes: Regular Rate and Rhythm, S1, S2 Respiratory: Yes: CTA Bilaterally Gastrointestinal: Yes: Normal Bowel Sounds, Soft Extremities: Yes: WNL Edema: Yes (less edema blessing) Labs: Assessment/Plan Problem List - Problems (1) Edema extremities Code(s): R60.0 - LOCALIZED EDEMA (2) Malaise and fatigue Code(s): R53.81 - OTHER MALAISE R53.83 - OTHER FATIGUE (3) Renal insufficiency Code(s): N28.9 - DISORDER OF KIDNEY AND URETER, UNSPECIFIED (4) Sleep apnea Code(s): G47.30 - SLEEP APNEA, UNSPECIFIED 5 .ALTERED MENTAL STATUS IMPROVED 6 LIKELY OSAS PLAN MONITOR LYTES SLEEP STUDIES OUTPATIENT DR TRAN
[2017-05-07] MEDS: AMITRIPTYLINE HCL 25 MG TABLET (FP) PO SCH (21:12)
[2017-05-07] MEDS: PRAMIPEXOLE DIHYDROCHLORIDE 0.5 MG TABLET PO SCH (21:12)
[2017-05-08 07:55] LABS: ANION GAP 6 (8-16); CALCIUM 8.5 mg/dL (8.5-10.1); CO2 29 mmol/L (21-32); CREATININE 1.3 mg/dL (0.7-1.3); GLUCOSE,RANDOM 84 mg/dL (74-106)
--- NOTE | 2017-05-08 08:42 | DS ---
Physical Examination Vital Signs: Vital Signs Temperature 98.0 F 05/08/17 06:00 Pulse Rate 58 L 05/08/17 06:00 Respiratory Rate 18 05/08/17 06:00 Blood Pressure 148/74 05/08/17 06:00 O2 Sat by Pulse Oximetry (%) 98 05/07/17 21:00 Constitutional: Yes: Calm Eyes: Yes: Occular Prosthesis (left) Cardiovascular: Yes: Regular Rate and Rhythm Respiratory: Yes: Diminished. No: Rales, Wheezes Gastrointestinal: Yes: Soft Renal/: No: Olivarez Present Edema: No Neurological: Yes: Alert, Oriented Labs: CBC, BMP 05/06/17 05:35 05/08/17 06:15 Discharge Summary Reason For Visit: EDEMA EXTREMITIES RENAL INSUFFICIENCY Current Active Problems Edema extremities (Acute) Iron deficiency anemia (Acute) Malaise and fatigue (Acute) Migraine (Acute) Renal insufficiency (Acute) Restless leg syndrome (Acute) Sleep apnea (Acute) B12 deficiency(acute) Procedures: Principal: IV RX; MRI Brain Other Procedures: Followup lab tests, Echocardiogram and Consultations from Neurology, Cardiology and Pulmonary MD's and PT. Hospital Course: No residual lethargy and pedal edema improved and renal lab better; will followup with B12, Iron, Stool guiac and Sleep apnea test. Condition: Improved - Instructions Diet, Activity, Other Instructions: No added salt in diet. Revisit Dr. Mrak within 2 weeks to recheck Blood pressure, legs and discuss sleep apnea test and low B12 and Iron stores on lab tests. regular appointment Dr. Bryant Be active after another day or two of rest. B12 1000mcg is over the counter; take 1 a day. No water pills for now. Referrals: Husam Bryant MD [Staff Physician] - Brian Mark MD [Primary Care Provider] - Disposition: HOME - Home Medications Comprehensive Discharge Medication List: Ambulatory Orders Atorvastatin Calcium [Lipitor] 10 mg PO DAILY 05/05/13 Divalproex Sodium [Depakote] 250 mg PO BID 05/05/17 Losartan Potassium [Cozaar -] 50 mg PO DAILY 05/05/17 Aspirin [ASA -] 81 mg PO DAILY 05/06/17 Amitriptyline HCl [Elavil -] 50 mg PO HS tablet 05/08/17 Cyanocobalamin [Vitamin B12 -] 1,000 mcg PO DAILY tablet 05/08/17 Pramipexole Dihydrochloride [Mirapex -] 0.125 mg PO DAILY@0830 tablet 05/08/17 Pramipexole Dihydrochloride [Mirapex -] 0.5 mg PO HS tablet 05/08/17 Propranolol HCl [Inderal LA -] 120 mg PO DAILY #30 cap 05/08/17
[2017-05-08] MEDS ORDERED: PT OWN MED DRAWER 7, Y5N ONE (09:58)
[2017-05-08] MEDS ORDERED: CYANOCOBALAMIN 1,000 MCG TABLET (FP) PO SCH (10:00)
--- NOTE | 2017-05-08 10:12 | PN ---
Progress Note (short form) - Note Progress Note: s: no cp sob palps dizzy o: Vital Signs Period Temp Pulse Resp BP Sys/Balbuena Pulse Ox Last 24 Hr 97.5 F-98.0 F 55-59 18-20 145-159/74-90 98 Constitutional: Yes: Well Nourished, No Distress Eyes: No: Sclera Icterus Respiratory: Yes: CTA Bilaterally. No: Accessory Muscle Use, Rales, Wheezes Gastrointestinal: Yes: Normal Bowel Sounds. No: Distention, Hepatomegaly, Palpable Mass, Tenderness Cardiovascular: Yes: Regular Rate and Rhythm JVD: No Heart Sounds: Yes: S1, S2. No: Gallop Murmur: No: Systolic Murmur, Diastolic Murmur Extremities: No: Cold, Cyanosis Edema: Yes (trace bl ankles) Integumentary: No: Jaundice diaphoresis Neurological: Yes: Alert. No: Seizure Psychiatric: No: Agitated Current Medications Generic Name Dose Route Start Last Admin Trade Name Freq PRN Reason Stop Dose Admin Amitriptyline HCl 50 mg 05/06/17 22:00 05/07/17 21:12 Elavil - PO 50 mg HS WOLF Administration Aspirin 81 mg 05/06/17 10:00 05/07/17 09:35 Ecotrin - PO 81 mg DAILY WOLF Administration Atorvastatin Calcium 10 mg 05/06/17 10:00 05/07/17 09:34 Lipitor - PO 10 mg DAILY WOLF Administration Cyanocobalamin 1,000 mcg 05/08/17 10:00 Vitamin B12 - PO DAILY WOLF Divalproex Sodium 250 mg 05/06/17 10:00 05/07/17 21:12 Depakote - PO 250 mg BID WOLF Administration Pramipexole Dihydrochloride 0.125 mg 05/07/17 08:30 05/07/17 09:34 Mirapex - PO 0.125 mg DAILY@0830 WOLF Administration Pramipexole Dihydrochloride 0.5 mg 05/06/17 22:00 05/07/17 21:12 Mirapex - PO 0.5 mg HS WOLF Administration Propranolol HCl 120 mg 05/07/17 10:00 05/07/17 09:35 Inderal La - PO 120 mg DAILY WOLF Administration CBC, BMP 05/06/17 05:35 05/08/17 06:15 tele: sr Echo 05/03 (here): nl LV/EF; no RWMA; nl RV; nl LA; mild AI/MR/TR; RVSP 30-40 Carotids: minimal, nonobstr ather ECG: NSR (50s), no path q's, no isch findings a/p: altered MS, slurred speech: -CT head no acute pathology -plans per neuro LE edema: -no pulm congestion on CXR, BNP 200 -no chf on exam (no JVD) -TSH normal -? med s.e. (pramipexole (which can also cause sleepiness/MS change)?)--neuro med doses per dr vivas recs -given eden, would continue to hold lasix for now (was on 20 qd at home) -edema minimal now--defer stockings for now, rec'd leg elevation/salt restriction sinus bradycardia: -suspect due to hi vagal tone from lethargic pt -propranolol may be contributing -pt's current sx's are not related to bradycardia, which is only mild (HR mostly in 50s, occasionally high 40s) -tele now showing sr 60s, no significant bradycardia EDEN: -initially creat 2.0 here, improving -per renal HTN: -well controlled BP's here -on propranolol--? only for migraines, or also h/o HTN? HPL: -cont home statin regimen cardiac almeida remains stable
[2017-05-08] MEDS: ATORVASTATIN CA 10 MG TABLET (FP) PO SCH (10:20)
[2017-05-08] MEDS: ASPIRIN COATED 81 MG TABLET.EC PO SCH (10:20)
[2017-05-08] MEDS: PRAMIPEXOLE DIHYDROCHLORIDE 0.125 MG TABLET PO SCH (10:21)
[2017-05-08] MEDS: DIVALPROEX SODIUM 250 MG TABLET E.C. (FP) PO SCH (10:21)
[2017-05-08 11:33] VITALS: BP 136/77; PULSE 60; TEMP 97.8
[2017-05-08 14:19] LABS: BETA-2-MICROGLOBULIN 2.6 mg/L (0.6-2.4)
[2017-05-09 00:08] LABS: A/G RATIO 1.1 (0.7-1.7); ALBUMIN 3.2 g/dL (2.9-4.4); ALPHA-1-GLOBULIN 0.2 g/dL (0.0-0.4); BETA GLOBULIN 1.1 g/dL (0.7-1.3); GAMMA GLOBULIN 1.2 g/dL (0.4-1.8); GLOBULIN, TOTAL 3.1 g/dL (2.2-3.9); M-SPIKE Not Observed g/dL (Not Observed); TOTAL PROTEIN 6.3 g/dL (6.0-8.5)
== END 2017-05-08 11:03 | disposition home or self-care (01) | DRG 684 ==
LOC: JER 17:40 → JERBED 23:57 → J4S 05-06 13:37
PROVIDERS: ADMIT Internal Medicine; ATTEND Internal Medicine
DX: N17.9 Acute kidney failure, unspecified (principal); T44.7X5A Adverse effect of beta-adrenoreceptor antagonists, initial encounter; R47.81 Slurred speech; R53.83 Other fatigue; T42.8X5A Adverse effect of antiparkinsonism drugs and other central muscle-tone depressants, initial encounter; R60.0 Localized edema; E78.00 Pure hypercholesterolemia, unspecified; I10 Essential (primary) hypertension; I87.2 Venous insufficiency (chronic) (peripheral); K80.20 Calculus of gallbladder without cholecystitis without obstruction; R00.1 Bradycardia, unspecified; N28.9 Disorder of kidney and ureter, unspecified; G47.30 Sleep apnea, unspecified; G25.81 Restless legs syndrome; G43.909 Migraine, unspecified, not intractable, without status migrainosus; D50.9 Iron deficiency anemia, unspecified; R41.82 Altered mental status, unspecified
CPT/HCPCS: 36415; 70450-TC; 70551-TC; 71010-TC; 71020-TC; 80048; 80053; 80061; 80164; 81003; 82232; 82550; 82607; 82728; 82746; 82784; 83036; 83540; 83721; 83735; 83880; 83883; 84155; 84165; 84443; 84484; 85025; 85610; 86334; 93005; 93010; 93306-TC; 93880-TC; 93970-TC; 97116-GP; 97161-GP; 99284-25

== ENCOUNTER 2019-08-12 05:02 | Day surgery (SDC) | payer OTHER ==
[2019-08-11 15:51] VITALS: BMI 28.8
[2019-08-12] MEDS ORDERED: DEXAMETHASONE SOD PHOSPHATE 4 MG/1 ML VIAL ONE (11:41)
[2019-08-12] MEDS ORDERED: ceFAZolin SODIUM 1 GM VIAL ONE (11:41)
[2019-08-12] MEDS ORDERED: SODIUM CHLORIDE 0.9% P/F 10 ML VIAL IJ ONE (11:41)
[2019-08-12] MEDS ORDERED: LIDOCAINE HCL/PF 2% SDV 5ML VIAL ONE (11:41)
[2019-08-12] MEDS ORDERED: ACETAMINOPHEN 1000 MG/100 ML VIAL (NON FORMULARY) IVPB ONE ×2 (11:52→13:45)
--- NOTE | 2019-08-12 11:54 | HP ---
History & Physical Update - History History: No Change - Physical Physical: No Change - Assessment Assessment: No Change - Plan Plan: No Change
[2019-08-12] MEDS ORDERED: DEXTROSE 5%-0.45% SALINE 1,000 ML IV SCH (12:00)
[2019-08-12] MEDS ORDERED: IBUPROFEN 800 MG/8 ML IJ IVPB SCH (12:00)
[2019-08-12] MEDS ORDERED: DEXMEDETOMIDINE HCL 200 MCG/2 ML IVPB ONE (12:09)
[2019-08-12] MEDS ORDERED: ROCURONIUM BROMIDE 50 MG/5 ML SYRINGE ONE (12:11)
[2019-08-12] MEDS ORDERED: SUCCINYLCHOLINE CHLORIDE 200 MG/10 ML SYRINGE ONE (12:11)
[2019-08-12] MEDS ORDERED: ceFAZolin SODIUM 1 GM VIAL IVPB ONE (12:26)
[2019-08-12] MEDS ORDERED: KETOROLAC TROMETHAMINE 30 MG/1 ML VIAL ONE (12:32)
[2019-08-12] MEDS ORDERED: EPHEDRINE SULFATE/0.9% NACL/PF 50 MG/10 ML SYRINGE NR ONE (12:48)
[2019-08-12] MEDS ORDERED: mitoMYcin 40 MG/50 ML DISP.SYRIN (FOR OR USE) IC ONE (13:00)
[2019-08-12] MEDS ORDERED: ONDANSETRON 4 MG/2 ML VIAL IVPUSH PRN (13:23)
[2019-08-12] MEDS ORDERED: oxyCODONE HCL 5 MG TABLET PO PRN (13:23)
[2019-08-12] MEDS ORDERED: ACETAMINOPHEN INJECTION 100 ML IVPB ONE (13:54)
--- NOTE | 2019-08-12 15:18 | OP ---
DATE OF OPERATION: 08/12/2019 PREOPERATIVE DIAGNOSIS: Bladder tumor, lateral wall. POSTOPERATIVE DIAGNOSIS: Bladder tumor, lateral wall. PROCEDURE: Cystoscopy, transurethral resection of bladder tumor, and instillation of Mitomycin. SURGEON: Brian Oakley MD GRADE SETTER: None. ESTIMATED BLOOD LOSS: Minimal, 25 mL. SPECIMEN: Bladder tumor. DRAINS: A Olivarez catheter. PREOPERATIVE INDICATIONS: Patient is a 79-year-old male who presented with gross hematuria. On cystoscopy in the office, a large sessile bladder tumor was seen in the right lateral wall. He comes to the OR for resection. OPERATION: Patient was brought to the OR, placed on the table in the supine position, given general anesthesia and IV antibiotics, and placed in the modified lithotomy position. The groin was prepped and draped sterilely. Timeout was performed. Cystoscopy was performed. Distal urethra appeared to be normal. The sphincter was intact. The prostate was enlarged with lateral lobes and a high median bar. It was obstructive. The bladder itself had trabeculations throughout. Both UOs were seen with clear efflux. No stones were seen. A large area of tumor was seen. It was approximately 4 cm in diameter along the right lateral wall. There were some necrotic areas on the surface of the tumor as well. It was not involving the . Using the bipolar resectoscope, the entire tumor was resected down to the muscle layer. All pieces were irrigated out, sent for pathology. Good hemostasis was achieved using the bipolar ball. No evidence of any perforation was seen. Bladder was emptied. Olivarez catheter was placed; 50 mL of 40 mg of Mitomycin was injected into the bladder, and the Olivarez was clamped. Patient was woken up. BRIAN OAKLEY M.D. [id number]
[2019-08-12 16:43] VITALS: BP 136/69; PULSE 69; TEMP 97.9
--- NOTE | 2019-08-17 17:00 | PATH ---
Surgical Pathology Report Patient Name: JOSH MARIN [facility]. Rec. #: [id number] /Age/Gender: 1940 (Age: 79) / M Account: [id number] Location: [facility] SUR[facility] Taken: 08/12/2019 Received: 08/12/2019 Reported: 08/17/2019 Physicians: Brian Oakley M.D. Specimen(s) Received BLADDER TUMOR Clinical History Bladder tumor Final Diagnosis BLADDER TUMOR, EXCISION: INVASIVE UROTHELIAL CARCINOMA, HIGH GRADE, WITH MARKED TUMOR NECROSIS. TUMOR INVADES INTO MUSCULARIS PROPRIA. Comment: Immunohistochemical stained slides demonstrate tumor cells to be positive for Lyndsay-3, Thrombomodulin, CK7 (patchy), while negative for Uroplakin, CK 20, PSAP, PSA. and NKX3.1. The morphology and immunophenotype support a diagnosis of urothelial carcinoma. Immunohistochemistry stains Lyndsay-3, Thrombomodulin, CK7, Uroplakin, CK 20, PSAP, PSA. and NKX3.1 performed at [place], [place] ([id number]) interpreted at [facility]. Positive and negative controls (internal if applicable) show appropriate results. Intradepartmental case reviewed with concordance on diagnosis, August 17, 2019. Electronically Signed Clarice Bullock M.D. Gross Description Received in formalin, labeled "bladder tumor" are multiple thomson to farris, irregular portions of soft tissue measuring 4.0 x 4.0 x 2.0 cm in aggregate. The specimen is entirely submitted in 6 cassettes. FERNANDO/08/12/2019 mila/08/12/2019
== END 2019-08-12 16:20 | disposition home or self-care (01) ==
LOC: JASU-SURG 05:02
PROVIDERS: ATTEND Urology
PROC: 0T5B8ZZ Destruction of Bladder, Via Natural or Artificial Opening Endoscopic (ICD-10-PCS; principal; 2019-08-12 13:00)
DX: C67.2 Malignant neoplasm of lateral wall of bladder (principal)
CPT/HCPCS: 88305-TC; 94760; J0131